=== PATIENT | female | born 1995 | race Caucasian/White ===

== ENCOUNTER 2024-01-04 16:23 | Inpatient (IN) | payer MEDICAID ==
[2024-01-04] VITALS (24 sets, daily range): BP systolic 65–140; BP diastolic 44–98; PULSE 75–118; TEMP 98.1–98.5
[~2024-01-04] VITALS: Ht 157.5 cm; Wt 67.3 kg
[~2024-01-04 16:23] MED LIST: WELLBUTRIN XL300 M1 PO
--- NOTE | 2024-01-04 16:30 | NUR ---
555677.2, G4L3 arrives on unit with c/o regular ctx and leaking of vaginal fluid since 299. To ldr4 with sister. Oriented to room and plan of care. Changes into clean gown. Reports normal movement. Denies any VB. 1635EFM explained and placed. VS obtained. Assessment completed. 1638SVE 4/90/-2, forebag palpated. Amnitest positive. Dr. Sage on unit and updated on pt. See physician notification. 1658IV to left fa. Labs obtained. LR infusing. PCN G initiated. 1713 Dr. Sage at bedside and reviews plan of care with pt and family. Patient requesting epidural. Tyrell Aldridge CRNA on unit and notified. 1725Patient to edge of bed for epidural placement. FHR tracing intermittently due to maternal position. 1732Epidural placed and single shot at this time by Tyrell Aldridge CRNA. See anesthesia record. 1738Patient wedge left. Dr. Sage at bedside. SVE per provider 6-7/85/-2. 1808 Coincidence on monitor. RN at bedside to adjust EFM. 1815Catheter placed. See flowsheet. 1817BP noted to be 65/44 and 66/46 on repeat. LR bolus. Patient left lateral. Ephedrine given. See oct. Following bp 99/59. 1830Report to Anette Albright RN who assumes care of patient at this time.
[2024-01-04] MEDS ORDERED: LR & Oxytocin 500 ML IV SCH ×2 (17:00→17:15)
[2024-01-04] MEDS ORDERED: Penicillin G Potassium 5,000,000 UNITS in NS 100 ML IV ONE ×2 (17:00→17:15)
[2024-01-04] MEDS ORDERED: LR 1,000 ML IV SCH ×2 (17:00→17:15)
[2024-01-04 17:08] LABS: BASO % 0.4 % (0.0-2.0); EOS # 0.1 K/mm3 (0.0-0.7); EOS % 1.7 % (0.0-4.0); GRAN # 5.9 K/mm3 (1.4-6.5); GRAN % 71.2 % (42.2-75.2); LYMPH # 1.6 K/mm3 (1.2-3.4); LYMPH % 18.9 % (20.0-51.0); MEAN CELL VOLUME 78 fl (80.0-100.0); MEAN CORPUSCULAR HEMOGLOBIN 25 pg (27-31); MEAN CORPUSCULAR HGB CONC 32 g/dl (33.0-37.0); MEAN PLATELET VOLUME 11.9 fl (7.4-10.4); MONO # 0.6 K/mm3 (0.1-0.6); MONO % 7.2 % (1.7-9.3); PLATELET COUNT 145 K/mm3 (130-400); RED BLOOD COUNT 4.45 M/mm3 (4.10-5.30); REDCELL DISTRIBUTION WIDTH-CV 14.1 % (11.5-14.5)
[2024-01-04 17:11] LABS: HEMATOCRIT 34.8 % (37.0-47.0)
[2024-01-04 17:27] LABS: ALBUMIN 2.6 g/dL (3.5-5.0); BILIRUBIN,TOTAL 0.4 mg/dL (0.2-1.2); CALCIUM 10.1 mg/dL (8.4-10.2); CREATININE, serum 0.69 mg/dL (0.57-1.11); POTASSIUM 4.1 mEq/L (3.5-4.5); TOTAL PROTEIN 6.5 g/dl (6.2-8.1)
[2024-01-04] MEDS ORDERED: diphenhydrAMINE 25 MG CAP PO PRN (18:00)
[2024-01-04] MEDS ORDERED: Ondansetron 4 MG/2 ML VIAL IV PRN (18:00)
[2024-01-04] MEDS ORDERED: ePHEDrine 50 MG/10 ML VIAL IV PRN (18:00)
[2024-01-04] MEDS ORDERED: diphenhydrAMINE 50 MG/ML 1 ML VIAL IV PRN (18:00)
[2024-01-04] MEDS ORDERED: Naloxone 0.4 MG/ML VIAL IV PRN ×2 (18:00→19:30)
--- NOTE | 2024-01-04 18:45 | NUR ---
Pt in LL with R leg in [facility]. Family loving and attentive @ bedside. Dr Sage @ L&D desk.
[2024-01-04] MEDS ORDERED: Phenylephrine/Mineral Oil/Petrolatum 57 GM TUBE RC PRN (19:30)
[2024-01-04] MEDS ORDERED: Mag/Al Hydrox/Simeth Susp 30 ML CUP PO PRN (19:30)
[2024-01-04] MEDS ORDERED: Witch Hazel 50% Pads Bulk TUB TP PRN (19:30)
[2024-01-04] MEDS ORDERED: oxyCODONE 5 MG TAB PO PRN (19:30)
[2024-01-04] MEDS ORDERED: Acetaminophen 500 MG TAB PO PRN (19:30)
[2024-01-04] MEDS ORDERED: Measles/Mumps/Rubella Virus Vaccine Live w Diluent 0.5 ML VIAL SQ SCH (19:30)
[2024-01-04] MEDS ORDERED: Magnes Hydrox (MOM) 80 MG/ML 30 ML CUP PO PRN (19:30)
[2024-01-04] MEDS ORDERED: Ibuprofen 800 MG TAB PO SCH (19:30)
[2024-01-04] MEDS ORDERED: Loratadine 10 MG TAB PO PRN (19:30)
--- NOTE | 2024-01-04 19:48 | NUR ---
Perineal prep by Dr Sage. Pushing instructions by Dr Sage. [address] Sage. Baby to Mom's abd. PT cuts cord.
--- NOTE | 2024-01-04 20:00 | NUR ---
Placenta delivers spont and intact 3 vessel cord. Pitocin 30u in 500cc Lr started @ bolus rate per pump, biggybacked to mainline LR.
[2024-01-04] MEDS ORDERED: Penicillin G Potassium 2,500,000 UNITS in NS 100 ML IV SCH (20:47)
[2024-01-04] MEDS ORDERED: traZODone 50 MG TAB PO PRN (21:00)
--- NOTE | 2024-01-04 21:00 | NUR ---
Family member takes BP off, atates "she doesn't like that, it hurts" Explained to pt that is important to monitor her vital signs in the recovery period. Pt declines, stating "I'm fine. I don't want it on" .
--- NOTE | 2024-01-04 22:15 | NUR ---
Pt able to move legs, 'some' but not able to lift legs off bed. Epid dc'd. Pt ready to eat. family brought in food. Denies needs.
--- NOTE | 2024-01-04 22:50 | NUR ---
Attempt to get up. Pt able to stand at bedside, knees give out when attempt to walk. Back onto bed without difficulty. To bathroom via 'jones steady', able to void. Performs own pericare. Clean gown on to room via 'jones steady.' Oriented to post room, plan of care.
[2024-01-05 05:25] VITALS: BP 119/87; PULSE 79; TEMP 98
[2024-01-05 07:15] VITALS: BP 128/91; PULSE 63; TEMP 98.1
[2024-01-05] MEDS ORDERED: Sennosides/Docusate 8.6-50 MG TAB PO SCH (08:00)
[2024-01-05] MEDS ORDERED: buPROPion XL (24-HR) 150 MG TAB PO SCH (09:00)
[2024-01-05 11:45] VITALS: BP 117/84; PULSE 76
[2024-01-05 16:00] VITALS: BP 117/84; PULSE 76; TEMP 98.3
[2024-01-05 19:50] VITALS: BP 132/89; PULSE 85; TEMP 98.4
[2024-01-06] VITALS: BP 121/58; PULSE 95; TEMP 98.7
[2024-01-06 03:15] VITALS: BP 111/68; PULSE 100; TEMP 98.8
[2024-01-06 07:34] VITALS: BP 124/67; PULSE 68; TEMP 98
[2024-01-06] MEDS ORDERED: IBU800 M1 PO (09:31)
== END 2024-01-06 15:45 | disposition home or self-care (01) | DRG 807 ==
LOC: LDRO 16:23 → LDR 16:48 → EDSTATUS 16:57 → OB 22:45
PROVIDERS: Obstetrics & Gynecology; ADMIT Obstetrics & Gynecology
PROC: 10E0XZZ Delivery of Products of Conception, External Approach (ICD-10-PCS; principal; 2024-01-04)
DX: O48.0 Post-term pregnancy (principal); Z37.0 Single live birth; Z3A.40 40 weeks gestation of pregnancy; O76 Abnormality in fetal heart rate and rhythm complicating labor and delivery; O99.344 Other mental disorders complicating childbirth; F41.9 Anxiety disorder, unspecified; O99.824 Streptococcus B carrier state complicating childbirth; F43.10 Post-traumatic stress disorder, unspecified
CPT/HCPCS: J2540; J2590; J7120